=== PATIENT | male | born 1960 ===

== ENCOUNTER → 2019-01-06 18:58 | Outpatient (REF) | payer SELFPAY ==
[2019-01-06 21:17] LABS: Urine N gonorrhoeae NOT DETECTED
[2019-01-06 21:30] LABS: Urine Chlamydia NOT DETECTED
== END ==
LOC: LAB 18:58
PROVIDERS: Visit Provider Physician Assistant
DX: A64 Unspecified sexually transmitted disease (principal)
CPT/HCPCS: 87491; 87591